=== PATIENT | female | born 1955 | race Caucasian/White ===

== ENCOUNTER 2018-08-20 08:37 | Emergency (ER) | payer OTHER ==
[2018-08-20] MEDS ORDERED: KETOROLAC TROMETHAMINE 30 MG/ML SOL ONE (09:24)
[2018-08-20] MEDS ORDERED: KETOROLAC TROMETHAMINE 30 MG/ML SOL IV ONE (09:25)
[2018-08-20] MEDS ORDERED: SODIUM CHLORIDE 0.9% 1000ML 1,000 ML IV NR ×2 (09:30→09:41)
[2018-08-20 09:33] LABS: BASOPHILS % (AUTO) 1 % (0-3); EOSINOPHILS % (AUTO) 3 % (0-9); HEMATOCRIT 40 % (35-47); HEMOGLOBIN 13.2 gm/dl (12.0-15.5); LYMPHOCYTES % (AUTO) 30.3 % (10-50); MEAN CORPUSCULAR HEMOGLOBIN 29.5 pg (27.0-32.0); MEAN CORPUSCULAR HGB CONC 33.1 gm/dl (32.0-36.0); MEAN CORPUSCULAR VOLUME 89 fL (81-99); MONOCYTES % (AUTO) 5.3 % (0-12); NEUTROPHILS % (AUTO) 60.9 % (37-80)
[2018-08-20] MEDS ORDERED: SODIUM CHLORIDE 0.9% FLUSH 10 ML SOL IV PRN (09:35)
[2018-08-20 09:46] VITALS: RESP 20
[2018-08-20 09:47] LABS: ALBUMIN 3.7 gm/dl (3.4-5.0); BILIRUBIN,TOTAL 0.8 mg/dl (0.2-1.0); CALCIUM 8.7 mg/dl (8.5-10.1); CARBON DIOXIDE 25.8 mEq/L (21-32); CREATININE 0.9 mg/dl (0.60-1.00); POTASSIUM 4.1 mMol/L (3.5-5.1)
[2018-08-20] MEDS ORDERED: PIPERACILLIN/TAZOBACT 3.375 GM 3 GM in SODIUM CHLORIDE 0.9% 100 ML 100 ML IV SCH (11:15)
[2018-08-20] MEDS ORDERED: PIPERACILLIN/TAZOBACT 3.375 GM PDS IV ONE (11:19)
[2018-08-20 12:07] VITALS: TEMP 98
[2018-08-20 13:33] VITALS: BP 136/76; PULSE 73; O2SAT 94
== END 2018-08-20 13:30 | disposition home or self-care (01) | DRG 392 ==
LOC: ED 08:37
DX: K57.92 Diverticulitis of intestine, part unspecified, without perforation or abscess without bleeding (principal)
CPT/HCPCS: 74177; 80053; 85025; 96365; 96366; 96374; 99070; 99283; 99285; J1885; J2543